=== PATIENT | female | born 1965 | race Caucasian/White ===

== ENCOUNTER 2020-03-29 20:42 | Emergency (ER) | payer MEDICARE, MEDICAID, SELFPAY ==
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
[2020-03-29 20:53] VITALS: BP 125/64; PULSE 90; RESP 18; TEMP 36.9; O2SAT 95
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
[2020-03-29] MEDS: KETOROLAC 30 MG/ML VIAL (*BKC) IM (21:16)
--- NOTE | 2020-03-29 21:38 | PC.NURSE ---
spoke [facility], wants transferred to [place] for surgery in AM
--- NOTE | 2020-03-29 21:39 | PC.NURSE ---
carlos called for a bed
--- NOTE | 2020-03-29 21:56 | PC.NURSE ---
splint applied per MD
[2020-03-29] MEDS: MORPHINE SULFATE 4 MG/ML INJ IM (22:06)
[2020-03-29 22:08] LABS: Basophils Absolute Auto 0.04 K/mm3 (0.00-0.10); Basophils Percent Auto 0.4 % (0.0-1.0); Eosinophils Absolute Auto 0.23 K/mm3 (0.02-0.50); Eosinophils Percent Auto 2.4 % (1.0-6.0); Hematocrit 43.4 % (35.0-49.0); Immature Granulocyte Absolute 0.02 K/mm3 (0.00-0.00); Immature Granulocyte Percent A 0.2 % (0.0-0.0); Lymphocytes Absolute Auto 1.62 K/mm3 (1.10-4.50); Lymphocytes Percent Auto 16.7 % (18.0-42.0); Mean Corpuscular HGB Conc 32.3 g/dL (32.0-36.0); Mean Corpuscular Hemoglobin 29.5 pg (27.0-31.0); Mean Corpuscular Volume 91.4 fL (78.0-102.0); Mean Platelet Volume 9.1 fl (9.2-11.8); Monocytes Absolute Auto 0.62 K/mm3 (0.10-0.90); Monocytes Percent Auto 6.4 % (2.0-11.0); Neutrophils Absolute Auto 7.2 K/mm3 (1.7-7.2); Neutrophils Percent Auto 73.9 % (50.0-70.0); Platelet Count Result 275 K/mm3 (150-420); Red Blood Count 4.75 M/mm3 (4.20-5.40); Red Cell Distribution Width 14.1 % (11.6-14.4); White Blood Count 9.7 K/mm3 (4.8-10.8)
[2020-03-29 22:12] VITALS: BP 124/79; PULSE 78; RESP 16
[2020-03-29 22:23] LABS: Prothrombin Time 10.7 Seconds (9.64-11.0)
[2020-03-29 22:26] LABS: Alanine Aminotransferase 33 U/L (14-59); Albumin Level 3.7 g/dL (3.4-5.0); Alkaline Phosphatase 101 U/L (46-116); Anion Gap 11.2 mmol/L (7-16); Aspartate Amino Transferase 26 U/L (15-37); Bilirubin,Total 0.2 mg/dL (0.00-1.00); Blood Urea Nitrogen 21 mg/dL (7-18); Calcium 9.4 mg/dL (8.5-10.1); Carbon Dioxide 29 mmol/L (21-32); Chloride 103 mmol/L (98-108); Estimated CRCL calculation 42 ml/min; Estimated Glomerular Filt Rate 48; Glucose 97 mg/dL (70-99); Osmolality Calculated 291 mOsm/kg (285-295); Potassium 4.2 mmol/L (3.5-5.1); Sodium 139 mmol/L (136-145); Total Protein 7.8 g/dL (6.4-8.2)
[2020-03-29 22:39] VITALS: BP 130/70; PULSE 78; RESP 18; TEMP 36.6; O2SAT 95
--- NOTE | 2020-03-29 22:52 | PC.NURSE ---
report called to carlos, consent from mother, tevin paged to transfer patient
--- NOTE | 2020-03-29 23:18 | PC.NURSE ---
Report to cr. pt transferred to cot. pt stable . mother (primary caregiver) to accompany pt.
== END 2020-03-29 23:21 | disposition short-term general hospital (02) ==
PROVIDERS: Emergency Provider Family Medicine; PCP Nurse Practitioner Family
DX: S82.401A Unspecified fracture of shaft of right fibula, initial encounter for closed fracture (principal); V19.9XXA Pedal cyclist (driver) (passenger) injured in unspecified traffic accident, initial encounter
CPT/HCPCS: 36415; 73600; 80053; 85025; 85610; 96372; 99283; 99284; 99285; J1885; J2270

== ENCOUNTER 2020-03-30 06:02 | Observation (INO) | payer MEDICARE, MEDICAID, SELFPAY ==
[2020-03-29 23:58] VITALS: BP 130/78; PULSE 82; RESP 20; TEMP 36.9; O2SAT 97; BMI 30.9
--- NOTE | 2020-03-29 23:58 | ADMGEN ---
This patient, Jesi Harris, was admitted to [facility] S[facility] Room 311-01. Patient/family oriented to hospital policies and general routines including ID bracelet, bed and alarms, visiting hours, pain management, procedures, bathroom and other care routines, personal items, smoking policy, room service/diet, and visiting hours. Valuables list has been completed. Information on how to activate the Rapid Response Team has been discussed. Patient/Family are encouraged to report perceived risks to care and to ask questions if they do not understand what they are told or what they should do.
[2020-03-30] VITALS (11 sets, daily range): BP systolic 122–134; BP diastolic 63–81; PULSE 68–92; RESP 16–20; TEMP 36.3–37.4; O2SAT 92–100
--- NOTE | ~2020-03-30 | XR_ITS ---
EXAMINATION: XR surgery orthopedic DATE: 03/30/2020 15:50 INDICATION: ORIF of a displaced fibular fracture at the right ankle TECHNIQUE: 3 fluoroscopic spot images of the right ankle were obtained during procedure performed by Dr. Najera. Radiologist was not present for the imaging or procedure. The amount of fluoroscopy time used during this procedure was 6.1 minutes. COMPARISON: 03/29/2020 FINDINGS: Interval reduction and lateral plate and screw fixation of the oblique distal left fibular fracture. There is also been reduction of the previously subluxed tibiotalar joint and fixation across the dist al tibial syndesmosis with tightrope type syndesmotic fixation with metallic anchor at the medial victoria e of the tibial tunnel. Alignment post fixation is near-anatomic with congruent ankle mortise. No new fractures identified. IMPRESSION: 1. Near-anatomic alignment post internal fixation of a Dorsey type B2 right ankle injury. Reviewed, dictated and finalized at location A. IMPRESSION: 1. Near-anatomic alignment post internal fixation of a Dorsey type B2 right ankl e injury.
--- NOTE | 2020-03-30 01:31 | PC.NURSE ---
Addendum entered by Lisa Lynn RN 03/30/20 04:45: Rapid responses were called on a different unit. Original Note: Dr. Mitchell called at this time for pain medication request with no answer. It is noted that two rapid responses had been called in the past hour and a half.
--- NOTE | 2020-03-30 02:05 | PC.NURSE ---
Addendum entered by Lisa Lynn RN 03/30/20 04:46: Kia martel called on a different unit. Original Note: Tried to reach Dr. Mitchell again at this time [0205] since there has not been a call back regarding pain medication. Again it is noted that about 30 minutes from this call a kia martel was called.
--- NOTE | 2020-03-30 04:00 | PC.NURSE ---
Patient states she is feeling more comfortable at this moment and the pain in her right lower leg/foot has gotten better with repositioning, elevating, and ice packs.
[2020-03-30] MEDS: MORPHINE SULFATE 2 MG/ML INJ IV PUSH ×2 (06:15→10:45)
[2020-03-30] MEDS: LEVOTHYROXINE SODIUM INJ 100 MCG/5 ML VIAL 25 MCG IV PUSH (08:17)
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
--- NOTE | 2020-03-30 12:26 | PC.NURSE ---
Patient to OR per bed around 1200. Consent signed and report was given prior to Td (SBAR on chart). Patient's mother, Yeimy, is at bedside and will remain in the patient's room during surgery.
--- NOTE | 2020-03-30 12:35 | WPDANESEPPF ---
Anes - Initial Pre Proc Eval Procedure: Operation Date: 03/30/20 13:30 Proposed Procedures p OPEN REDUCTION INTERNAL FIXATION RIGHT ANKLE - Brian Najera MD Date/Time: 03/30/20 12:35 Surgeon: Maikel Mesa PA-C Pre Op Diagnosis: Displaced fibular fracture Patient Data Age: 54 Gender: F Height: 5 ft 10 in Weight: 97.7 kg Last Vital Signs Temp 37.4 C 03/30/20 12:05 Pulse 92 03/30/20 12:05 Resp 16 03/30/20 12:05 BP 122/81 03/30/20 12:05 Pulse Ox 96 03/30/20 12:05 Allergies Allergy/AdvReac Type Severity Reaction Status Date / Time No Known Allergies Allergy Verified 03/30/20 00:20 Home Medications Medication Instructions Recorded Confirmed Type levothyroxine 50 mcg tablet 50 mcg PO DAILY #90 tablet 11/08/19 03/30/20 Rx citalopram 30 mg PO QAM 03/30/20 03/30/20 History fexofenadine-pseudoephedrine 1 tablet PO QAM 03/30/20 03/30/20 History [Genesis-D 12 Hour] multivitamin 1 tablet PO QPM 03/30/20 03/30/20 History omega 4-uyz-cpl-fish oil [Fish Oil] 1 cap PO QPM 03/30/20 03/30/20 History Patient hx anesthesia problems: none Family hx anesthesia problems: none PMFSH Past Medical History Medical History Cognitive developmental delay Depression Hypothyroidism Seasonal allergies Surgical History Surgical History H/O: hysterectomy Family History Family History Mother History of blood clots Hypertension Father Colon cancer Social History Social History Social History: The patient lives with her mother, Yeimy iDego. She is listed as Full Code. Her PCP is Dr. 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 Questions were solicited and answers provided to the satisfaction of the patient/family/POA.
[2020-03-30] MEDS: LACTATED RINGERS 1,000 ML 30 ML IV CONT ×2 (12:52→16:12)
[2020-03-30] MEDS: ceFAZolin 2 GM/D5W 50 ML 2 GM/50 ML BAG IVPB ×2 (13:00→21:38)
--- NOTE | 2020-03-30 16:14 | PM.OP ---
Procedure Note - Brief Procedure Note - Brief Date of procedure: 03/30/20 Pre-op diagnosis: Displaced fibular fracture Post-op diagnosis: same Procedure performed: ORIF RIGHT LATERAL MALLEOLUS FRACTURE WITH SYNDESMOTIC FIXATION Anesthesia: GLMA and GETA Surgeon: Brian Najera MD Estimated blood loss (mL): 15 Complications: No immediate complications Condition: stable Disposition: PACU
--- NOTE | 2020-03-30 17:04 | PC.NURSE ---
Returned from OR per bed. Report received from Yassine. Patient's mom is at bedside.
[2020-03-30] MEDS: SODIUM CHLORIDE 0.9% IV 1,000 ML 125 ML IV CONT (17:29)
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
[2020-03-30] MEDS: CITALOPRAM HYDROBROMIDE 10 MG TABLET 30 MG PO (20:08)
[2020-03-30] MEDS: OMEGA 3 POLYUNSAT FATTY ACIDS 1 GM CAP PO (20:10)
[2020-03-30] MEDS: MULTIVITAMINS THERAPEUTIC TAB (*BKC) 1 TABLET PO (20:10)
[2020-03-30] MEDS: ONDANSETRON INJ 4 MG/2 ML VIAL IV PUSH (21:30)
[2020-03-30] MEDS: ASPIRIN 325 MG ENTERIC TABLET PO (21:46)
[2020-03-31] VITALS (7 sets, daily range): BP systolic 104–129; BP diastolic 70–90; PULSE 66–98; RESP 16–18; TEMP 36.4–36.9; O2SAT 96–98
[2020-03-31] MEDS: SODIUM CHLORIDE 0.9% IV 1,000 ML 125 ML IV CONT (02:00)
[2020-03-31] MEDS: ceFAZolin 2 GM/D5W 50 ML 2 GM/50 ML BAG IVPB ×2 (05:57→12:03)
[2020-03-31] MEDS: LEVOTHYROXINE SODIUM 50 MCG TABLET PO (05:58)
[2020-03-31 06:21] LABS: Hematocrit 36.6 % (37.0-47.0); Hemoglobin 11.6 g/dL (12.0-15.0); Mean Corpuscular HGB Conc 31.7 g/dl (32-36); Mean Corpuscular Volume 91.5 fl (80-100); Mean Platelet Volume 9.6 fl (7.4-10.4); Platelet Count Result 252 k/mm3 (150-375); Red Cell Distribution Width 14.1 % (11.5-14.5)
[2020-03-31 06:36] LABS: Blood Urea Nitrogen 19 mg/dL (7-17); Calcium 8.2 mg/dL (8.4-10.2); Carbon Dioxide 26 mmol/L (22-30); Chloride 104 mmol/L (98-107); Estimated CRCL calculation 88 ml/min; Estimated Glomerular Filt Rate > 60; Glucose 174 mg/dL (65-105); Potassium 4.1 mmol/L (3.4-5.0); Sodium 135 mmol/L (137-145)
[2020-03-31] MEDS: DOCUSATE SODIUM 100 MG CAPSULE PO ×2 (08:09→17:09)
[2020-03-31] MEDS: ASPIRIN 325 MG ENTERIC TABLET PO ×2 (08:09→20:16)
[2020-03-31] MEDS: CITALOPRAM HYDROBROMIDE 10 MG TABLET 30 MG PO (08:10)
--- NOTE | 2020-03-31 09:12 | WPDANESPN ---
Anes - Prog Note Post-Op Date/Time: 03/31/20 09:12 Cardiovascular status: normal Respiratory status: normal Airway patency: baseline Mental status: baseline Post-Op hydration status: normal Vital Signs: Last Vital Signs Temp 36.6 C 03/31/20 06:00 Pulse 66 03/31/20 06:00 Resp 18 03/31/20 06:00 BP 104/76 03/31/20 06:00 Pulse Ox 97 03/31/20 06:00 I/O: Intake & Output 03/30/20 03/31/20 03/31/20 23:59 07:59 15:59 Intake Total 1270 1790 600 Output Total 125 1400 Balance 1145 390 600 Laboratory Tests 03/31/20 05:56 03/31/20 05:56 03/31/20 03/31/20 03/31/20 05:56 05:56 05:56 WBC 10.0 RBC 4.00 L Hgb 11.6 L Hct 36.6 L MCV 91.5 MCH 29.0 MCHC 31.7 L RDW 14.1 Plt Count 252 MPV 9.6 Sodium 135 L Potassium 4.1 Chloride 104 Carbon Dioxide 26 BUN 19 H Creatinine 0.80 Estim Creat Clear Calc 88 Estimated GFR > 60 Glucose 174 H Calcium 8.2 L Magnesium 2.0 TSH (Reflex) 1.060 Post-procedural complaints: none Patient Feedback: Patient satisfied with anesthetic care.
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
--- NOTE | 2020-03-31 13:10 | PM.PNORT ---
Progress Note: A&P Assessment and Plan (1) Closed fracture of right distal fibula: Qualifiers: Encounter type: initial encounter Fracture morphology: other fracture Qualified Code(s): S82.831A - Other fracture of upper and lower end of right fibula, initial encounter for closed fracture Code(s): S82.831A - Other fracture of upper and lower end of right fibula, initial encounter for closed fracture Status: Acute Assessment and Plan: POD #1: Right Ankle ORIF Patient/mother are nervous about her being discharge home due to NWB status of the RLE. Her elderly mother does not feel she will be able to help her with ADLs at home. PT/OT evaluation ordered. TRC consult initiated. Continue pain control. Continue ice. Elevate RLE. NWB RLE. Keep splint dry. Dispo: TRC evaluation Subjective Subjective Date/Time Seen: 03/31/20 13:10 POD #1: Open reduction and internal fixation of the lateral malleolus with syndesmosis fixations. No new complaints. Worried about going home. Pain well controlled. Review of Systems Constitutional: Constitutional: Denies chills, Denies fatigue, Denies lethargy, Denies night sweats and Reports weakness (RLE ) Eyes: Eyes: Reports no additional eye complaints ENT: Reports Normal hearing present, Denies dysphagia and Denies nasal congestion Cardiovascular: Cardiovascular: Denies chest pain, Denies leg edema, Denies lightheadedness and Denies palpitations Respiratory: Respiratory: Denies cough, Denies dyspnea and Denies wheezing Gastrointestinal: Gastrointestinal: Denies abdominal pain, Denies nausea and Denies vomiting Genitourinary: Genitourinary: Reports no additional female genitourinary complaints Musculoskeletal: Musculoskeletal: Denies myalgias, Reports arthralgias (Right Ankle ), Reports joint swelling (Right Ankle ) and Reports stiffness (Right Ankle ) Integumentary/Breasts: Comments: Splint c/d/i RIGHT ankle Neurologic: Denies Abnormal speech present, Reports abnormal gait (antalgic RLE (unable to bear weight) ), Denies confusion and Denies numbness Psychiatric: Psychiatric: Denies anxiety and Denies confusion Exam Const: General: comfortable and no acute distress HENMT: Mouth: Yes moist mucous membranes Eyes: General: appearance normal, both eyes and all related structures Neck: Neck: supple and no JVD Resp: Effort & Inspection: normal respiratory effort Other: able to speak in complete sentences Cardio: Rate: regular rate Rhythm: regular rhythm GI: Inspection: non-distended GI Palp: Yes Soft to palpation, No Tenderness to palpation present (GI) and No Guarding due to palpation present (GI) Skin: Other: Unable to assess skin of the RIGHT ankle due to splint. Splint c/d/i. Neuro: General: No gait normal (NWB RLE ) Cognition (Neuro): normal cognition (answering questions appropriately. A&Ox4. ) Speech: normal speech Motor exam (neuro): 5/5 motor strength present throughout (limited RLE ) Sensory Exam: normal sensation Extrem: Right lower extremity: hip/thigh (Thigh/knee soft/nontender ) Details: no tenderness and no swelling, ankle (splint c/d/i. ) and foot Details: normal capillary refill, vascular exam Details: dorsalis pedis pulse present and normal capillary refill; not cool and other (sensation intact RIGHT toes. Good capillary refill. Moves toes. ) Left lower extremity: normal to inspection, full ROM, normal capillary refill, ankle Details: normal to inspection; no tenderness and no swelling and foot Details: normal capillary refill; Negative for abnormal to inspection and no tenderness Psych: Mental Status: mental status grossly normal Other: Poor historian in regards to health history Objective Data Vital Signs Vital Signs: Vital Signs - 24 hr 03/30/20 16:15 03/30/20 16:20 03/30/20 16:35 Temperature 37.2 C Pulse Rate 81 85 90 Respiratory Rate 16 16 16 Blood Pressure 126/77 126/81 123/75 Pulse Oximetry 100 100 98
[2020-03-31] MEDS: MULTIVITAMINS THERAPEUTIC TAB (*BKC) 1 TABLET PO (17:09)
[2020-03-31] MEDS: OMEGA 3 POLYUNSAT FATTY ACIDS 1 GM CAP PO (17:09)
[2020-04-01 06:00] VITALS: BP 113/67; PULSE 75; RESP 16; TEMP 37.2; O2SAT 93
[2020-04-01] MEDS: LEVOTHYROXINE SODIUM 50 MCG TABLET PO (06:05)
[2020-04-01] MEDS: DOCUSATE SODIUM 100 MG CAPSULE PO ×2 (09:26→17:29)
[2020-04-01] MEDS: CITALOPRAM HYDROBROMIDE 10 MG TABLET 30 MG PO (09:27)
[2020-04-01] MEDS: ASPIRIN 325 MG ENTERIC TABLET PO ×2 (09:27→21:13)
--- NOTE | 2020-04-01 12:30 | P.PNOP_ITS ---
Progress Note: A&P Additional Plan POD 2 DOING WELL WITH SLOW PROGRESS. RECOMMEND SNF. MAY TRANSFER WHEN OK WITH MEDICINE. F/U IN 2 WEEKS Subjective Subjective Date/Time Seen: 04/01/20 12:30POD 2 DOING WELL. SLOW PROGRESS WITH PT. NO CALF PAIN Exam Extrem: Other: VSS AFEBRILE DRESSING DRYNV INTACT CALF SOFT Objective Data Vital Signs Vital Signs: Vital Signs - 24 hr 03/31/20 14:51 03/31/20 20:19 03/31/20 22:00 Temperature 36.9 C 36.8 C Pulse Rate 98 81 Respiratory Rate 18 16 Blood Pressure 129/70 126/71 Pulse Oximetry 97 96 96 04/01/20 06:00 Temperature 37.2 C Pulse Rate 75 Respiratory Rate 16 Blood Pressure 113/67 Pulse Oximetry 93 Intake/Output Intake/Output: Intake & Output 03/29/20 03/30/20 03/31/20 04/01/20 23:59 23:59 23:59 23:59 Intake Total 1320 4330 1340 Output Total 125 1700 Balance 1195 2630 1340 Meds/Results Medications: Active Medications Generic Name Dose Route Start Last Admin Trade Name Freq PRN Reason Stop Dose Admin Acetaminophen 650 mg 03/30/20 16:57 Tylenol Tablet PO Q6H PRN Pain Rated 1-3 Hydrocodone Bitart/Acetaminophen 1 tab 03/30/20 16:57 04/01/20 09:37 Manter 7.5-325 Mg PO 1 tab Q3H PRN Administration Pain Rated 4-6 Aspirin 325 mg 03/30/20 21:00 04/01/20 09:27 Aspirin Ec PO 325 mg Q12HR SERGEY Administration Citalopram Hydrobromide 30 mg 03/30/20 18:51 04/01/20 09:27 Celexa PO 30 mg QAM SERGEY Administration Diazepam 5 mg 03/30/20 16:57 Valium Po PO Q8H PRN Muscle Spasm Docusate Sodium 100 mg 03/30/20 17:00 04/01/20 09:26 Colace Capsule PO 100 mg BID SERGEY Administration Fish Oil 1 gm 03/30/20 18:55 03/31/20 17:09 Lovaza PO 1 gm QPM SERGEY Administration Levothyroxine Sodium 50 mcg 03/31/20 06:30 04/01/20 06:05 Synthroid PO 50 mcg DAILY@0630 [facility] Administration Loratadine/Pseudoephedrine Sulfate 1 tab 03/30/20 09:00 03/31/20 08:09 Claritin-D 24 Hour Tablet PO 1 tab QAM SERGEY Administration Magnesium Hydroxide 30 ml 03/30/20 16:57 Milk Of Magnesia PO BID PRN Constipation Morphine Sulfate 3 mg 03/30/20 16:57 Morphine Sulfate Inj IV PUSH Q3H PRN Pain Rated 7-10 Multivitamins Therapeutic 1 tablet 03/30/20 18:53 03/31/20 17:09 Multivitamins Therapeutic(*Bkc PO 1 tablet QPM SERGEY Administration Ondansetron HCl 4 mg 03/30/20 21:13 03/30/20 21:30 Zofran Inj IV PUSH 4 mg Q4H PRN Administration Nausea And Vomiting Oxycodone/Acetaminophen 2 tablet 03/30/20 16:57 Percocet 5-325 Mg PO Q4H PRN Breakthrough Pain Radiology Results: ITS Impressions Intraoperative X-Ray 03/30/20 16:27 IMPRESSION: 1. Near-anatomic alignment post internal fixation of a Dorsey type B2 right ankle injury. Quality VTE Prophylaxis VTE prophylaxis: mechanical ordered (SCDs; further management defered
[2020-04-01 14:00] VITALS: BP 143/69; PULSE 80; RESP 18; TEMP 36.9; O2SAT 100
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
[2020-04-01] MEDS: MULTIVITAMINS THERAPEUTIC TAB (*BKC) 1 TABLET PO (17:29)
[2020-04-01] MEDS: OMEGA 3 POLYUNSAT FATTY ACIDS 1 GM CAP PO (17:29)
[2020-04-01 22:00] VITALS: BP 135/72; PULSE 79; RESP 18; TEMP 37.1; O2SAT 98
[2020-04-02 06:00] VITALS: BP 110/65; PULSE 68; RESP 16; TEMP 36.2; O2SAT 96
[2020-04-02 06:34] LABS: Hematocrit 33.8 % (37.0-47.0); Hemoglobin 10.8 g/dL (12.0-15.0); Mean Corpuscular Hemoglobin 29.6 pg (26-34); Mean Corpuscular Volume 92.6 fl (80-100); Mean Platelet Volume 9.4 fl (7.4-10.4); Platelet Count Result 246 k/mm3 (150-375); Red Blood Count 3.65 M/mm3 (4.2-5.4); Red Cell Distribution Width 14.3 % (11.5-14.5); White Blood Count 7.1 K/mm3 (4.5-10.0)
[2020-04-02 06:51] LABS: Potassium 4.3 mmol/L (3.4-5.0)
[2020-04-02] MEDS: LEVOTHYROXINE SODIUM 50 MCG TABLET PO (06:58)
[2020-04-02 06:59] LABS: Blood Urea Nitrogen 16 mg/dL (7-17); Calcium 8.2 mg/dL (8.4-10.2); Carbon Dioxide 33 mmol/L (22-30); Chloride 104 mmol/L (98-107); Estimated CRCL calculation 88 ml/min; Estimated Glomerular Filt Rate > 60; Glucose 96 mg/dL (65-105); Magnesium 2.2 mg/dL (1.6-2.3); Sodium 137 mmol/L (137-145)
[2020-04-02 08:26] VITALS: O2SAT 96
[2020-04-02] MEDS: CITALOPRAM HYDROBROMIDE 10 MG TABLET 30 MG PO (09:56)
[2020-04-02] MEDS: DOCUSATE SODIUM 100 MG CAPSULE PO (09:56)
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
[2020-04-02] MEDS: ASPIRIN 325 MG ENTERIC TABLET PO (12:24)
--- NOTE | 2020-04-02 13:14 | PM.PNORT ---
Progress Note: A&P Additional Plan POD 3 DOING WELL. OK TO DC TO SNF. F/U IN 2 WEEKS. Subjective Subjective Date/Time Seen: 04/02/20 13:14 POD 3 DOING WELL. SLOW PROGRESS WITH PT. STABLE. NO CALF PAIN Exam Extrem: Other: VSS AFEBRILE DRESSING DRY NV INTACT NEG HOMANS SIGN Objective Data Vital Signs Vital Signs: Vital Signs - 24 hr 04/01/20 14:00 04/01/20 22:00 04/02/20 06:00 Temperature 36.9 C 37.1 C 36.2 C L Pulse Rate 80 79 68 Respiratory Rate 18 18 16 Blood Pressure 143/69 H 135/72 110/65 Pulse Oximetry 100 98 96 04/02/20 08:26 Temperature Pulse Rate Respiratory Rate Blood Pressure Pulse Oximetry 96 Intake/Output Intake/Output: Intake & Output 03/30/20 03/31/20 04/01/20 04/02/20 23:59 23:59 23:59 23:59 Intake Total 1320 4330 4020 600 Output Total 125 2092 920 4063 Balance 1195 2630 3420 -600 Meds/Results Medications: Active Medications Generic Name Dose Route Start Last Admin Trade Name Freq PRN Reason Stop Dose Admin Acetaminophen 650 mg 03/30/20 16:57 Tylenol Tablet PO Q6H PRN Pain Rated 1-3 Hydrocodone Bitart/Acetaminophen 1 tab 03/30/20 16:57 04/02/20 09:58 [place] 7.5-325 Mg PO 1 tab Q3H PRN Administration Pain Rated 4-6 Aspirin 325 mg 03/30/20 21:00 04/02/20 12:24 Aspirin Ec PO 325 mg Q12HR SERGEY Administration Citalopram Hydrobromide 30 mg 03/30/20 18:51 04/02/20 09:56 Celexa PO 30 mg QAM SERGEY Administration Diazepam 5 mg 03/30/20 16:57 Valium Po PO Q8H PRN Muscle Spasm Docusate Sodium 100 mg 03/30/20 17:00 04/02/20 09:56 Colace Capsule PO 100 mg BID SERGEY Administration Fish Oil 1 gm 03/30/20 18:55 04/01/20 17:29 Lovaza PO 1 gm QPM SERGEY Administration Levothyroxine Sodium 50 mcg 03/31/20 06:30 04/02/20 06:58 Synthroid PO 50 mcg DAILY@0630 SERGEY Administration Loratadine/Pseudoephedrine Sulfate 1 tab 03/30/20 09:00 04/02/20 09:57 Claritin-D 24 Hour Tablet PO 1 tab QAM SERGEY Administration Magnesium Hydroxide 30 ml 03/30/20 16:57 Milk Of Magnesia PO BID PRN Constipation Morphine Sulfate 3 mg 03/30/20 16:57 Morphine Sulfate Inj IV PUSH Q3H PRN Pain Rated 7-10 Multivitamins Therapeutic 1 tablet 03/30/20 18:53 04/01/20 17:29 Multivitamins Therapeutic(*Bkc PO 1 tablet QPM SERGEY Administration Ondansetron HCl 4 mg 03/30/20 21:13 03/30/20 21:30 Zofran Inj IV PUSH 4 mg Q4H PRN Administration Nausea And Vomiting Oxycodone/Acetaminophen 2 tablet 03/30/20 16:57 Percocet 5-325 Mg PO Q4H PRN Breakthrough Pain Radiology Results: ITS Impressions Intraoperative X-Ray 03/30/20 16:27 IMPRESSION: 1. Near-anatomic alignment post internal fixation of a Dorsey type B2 right ankle injury. Labs Labs: Laboratory Results - last 24 hr 04/02/20 04/02/20 06:13 06:13 WBC 7.1 RBC 3.65 L Hgb 10.8 L Hct 33.8 L MCV 92.6 MCH 29.6 MCHC 32.0 RDW 14.3 Plt Count 246 MPV 9.4 Sodium 137 Potassium 4.3 Chloride 104 Carbon Dioxide 33 H BUN 16 Creatinine 0.80 Estim Creat Clear Calc 88 Estimated GFR > 60 Glucose 96 Calcium 8.2 L Magnesium 2.2 Quality VTE Prophylaxis VTE prophylaxis: mechanical ordered (SCDs; further management defered to Ortho)
== END 2020-04-02 14:40 | disposition swing bed (61) ==
PROVIDERS: Orthopaedic Surgery; Admitting Provider Internal Medicine; PCP Nurse Practitioner Family; Visit Provider Physician Assistant
PROC: (CPT 27792; principal; 2020-03-30 13:30)
DX: S82.61XA Displaced fracture of lateral malleolus of right fibula, initial encounter for closed fracture (principal); S93.421A Sprain of deltoid ligament of right ankle, initial encounter; V18.4XXA Pedal cycle driver injured in noncollision transport accident in traffic accident, initial encounter; E03.9 Hypothyroidism, unspecified; F32.9 Major depressive disorder, single episode, unspecified; J30.2 Other seasonal allergic rhinitis; F88 Other disorders of psychological development; Z79.899 Other long term (current) drug therapy
CPT/HCPCS: 27792; 27829; 36415; 80048; 83735; 84443; 85027; 96374; 96375; 96376; 97110; 97116; 97161; 97165; 97530; 97535; A9270; C1713; G0378; J0690; J1100; J2270; J2370; J2405; J2704; J7030; J7120

== ENCOUNTER 2020-04-02 15:18 | Inpatient (IN) | payer MEDICARE, SELFPAY ==
[2020-04-02 15:40] VITALS: BP 134/83; PULSE 79; RESP 18; TEMP 36.9; O2SAT 95
[2020-04-02 15:42] VITALS: BMI 30.9
--- NOTE | 2020-04-02 15:48 | ADMGEN ---
This patient, Jesi Harris, was admitted to 2nd Floor Room 202-2. Patient/family oriented to hospital policies and general routines including ID bracelet, bed and alarms, visiting hours, pain management, procedures, bathroom and other care routines, personal items, smoking policy, room service/diet, and visiting hours. Valuables list has been completed. Information on how to activate the Rapid Response Team has been discussed. Patient/Family are encouraged to report perceived risks to care and to ask questions if they do not understand what they are told or what they should do.
--- NOTE | 2020-04-02 16:30 | PC.NURSE ---
Patient resting in bed. Right lower leg elevated on pillow. Denies any needs. Call cowan at side.
[2020-04-02] MEDS: MULTIVITAMINS THERAPEUTIC TAB (*BKC) 1 TABLET PO (18:27)
[2020-04-02] MEDS: OMEGA 3 POLYUNSAT FATTY ACIDS 1 GM CAP PO (18:27)
[2020-04-02 23:34] VITALS: BP 135/73; PULSE 77; RESP 18; TEMP 36.7; O2SAT 94
--- NOTE | 2020-04-03 02:21 | PC.NURSE ---
pt sleeping, respirations even and regular, no evidence of distress noted at this time.
[2020-04-03] MEDS: LEVOTHYROXINE SODIUM 50 MCG TABLET PO (05:29)
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
[2020-04-03 08:00] VITALS: BP 126/70; PULSE 72; RESP 16; TEMP 36.6; O2SAT 96
[2020-04-03] MEDS: CITALOPRAM HYDROBROMIDE 20 MG TABLET 30 MG PO (08:15)
--- NOTE | 2020-04-03 14:08 | PC.NURSE ---
PT and OT - finishing up working with patient at this time.
[2020-04-03 15:14] VITALS: BP 160/80; PULSE 84; RESP 18; TEMP 37.3; O2SAT 95
--- NOTE | 2020-04-03 16:40 | PC.NURSE ---
to therapy via wheel chair to work on steps
--- NOTE | 2020-04-03 17:00 | PC.NURSE ---
returned from therapy, to chair for dinner, remains non weight bearing, using walker,
[2020-04-03] MEDS: MULTIVITAMINS THERAPEUTIC TAB (*BKC) 1 TABLET PO (17:59)
[2020-04-03] MEDS: OMEGA 3 POLYUNSAT FATTY ACIDS 1 GM CAP PO (17:59)
[2020-04-03] MEDS: ACETAMINOPHEN 500 MG TABLET 1000 MG PO (17:59)
--- NOTE | 2020-04-03 18:03 | PC.NURSE ---
tylenol given for pain, right shoulder, ice pack to shoulder and RLE
--- NOTE | 2020-04-03 20:34 | PC.NURSE ---
Up to toilet with gair belt and walker. NWB. to right leg. Does very well
[2020-04-03 20:43] VITALS: BP 129/72; PULSE 85; RESP 16; TEMP 37; O2SAT 96
[2020-04-03] MEDS: SENNA/DOCUSATE SODIUM TABLET 1 TAB PO (23:12)
[2020-04-03 23:30] VITALS: BP 110/66; PULSE 83; RESP 16; TEMP 36.9; O2SAT 93
[2020-04-04] MEDS: LEVOTHYROXINE SODIUM 50 MCG TABLET PO (06:09)
[2020-04-04 07:35] VITALS: BP 144/80; PULSE 84; RESP 18; TEMP 36.6; O2SAT 93
--- NOTE | 2020-04-04 07:35 | PC.NURSE ---
OT in room to work with patient.
[2020-04-04] MEDS: DOCUSATE SODIUM 100 MG CAPSULE PO (08:22)
[2020-04-04] MEDS: ACETAMINOPHEN 500 MG TABLET 1000 MG PO (09:01)
[2020-04-04] MEDS: CITALOPRAM HYDROBROMIDE 20 MG TABLET 30 MG PO (11:57)
--- NOTE | 2020-04-04 14:40 | PC.NURSE ---
PT in room to work with patient.
[2020-04-04 15:53] VITALS: BP 142/82; PULSE 92; RESP 16; TEMP 36.6; O2SAT 96
[2020-04-04] MEDS: MULTIVITAMINS THERAPEUTIC TAB (*BKC) 1 TABLET PO (16:55)
[2020-04-04] MEDS: OMEGA 3 POLYUNSAT FATTY ACIDS 1 GM CAP PO (16:55)
[2020-04-04 20:45] VITALS: BP 120/72; PULSE 76; RESP 20; TEMP 37.4; O2SAT 95
--- NOTE | 2020-04-04 20:45 | PC.NURSE ---
Ambulated to bathroom with no weight bearing to right leg with walker, gait belt and standby assist of one. Returned to bed independantly. Right Leg placed on pillow and fresh ice to ice bag and placed on pillow
[2020-04-04] MEDS: SENNA/DOCUSATE SODIUM TABLET 1 TAB PO (21:24)
[2020-04-05] VITALS: BP 114/64; PULSE 78; RESP 20; TEMP 36.9; O2SAT 94
[2020-04-05] MEDS: LEVOTHYROXINE SODIUM 50 MCG TABLET PO (06:09)
--- NOTE | 2020-04-05 06:12 | PC.NURSE ---
Awake for routine ordered po AM med. Denies need to void.
[2020-04-05 07:34] VITALS: BP 124/80; PULSE 73; RESP 18; TEMP 37; O2SAT 95
--- NOTE | 2020-04-05 08:08 | PC.NURSE ---
SBA from bathroom back to bed, refusing to eat breakfast, just doesn't feel like it
--- NOTE | 2020-04-05 08:42 | PC.NURSE ---
To therapy via wheel chair
[2020-04-05] MEDS: DOCUSATE SODIUM 100 MG CAPSULE PO (09:08)
--- NOTE | 2020-04-05 09:10 | PC.NURSE ---
Returned from therapy
[2020-04-05] MEDS: ACETAMINOPHEN 500 MG TABLET 1000 MG PO (11:34)
--- NOTE | 2020-04-05 11:35 | PC.NURSE ---
given tylenol for headache 01/20, left side, thinks her sinuses are causing pain, leg elevated on pillow, GLORIA good
[2020-04-05] MEDS: CITALOPRAM HYDROBROMIDE 20 MG TABLET 30 MG PO (12:34)
--- NOTE | 2020-04-05 12:48 | PC.NURSE ---
To therapy via wheel chair
--- NOTE | 2020-04-05 13:46 | PC.NURSE ---
Up to bathroom, SBA and use of walker with gait belt, tolerated well,
[2020-04-05 16:00] VITALS: BP 148/73; PULSE 88; RESP 18; TEMP 36.6; O2SAT 98
[2020-04-05] MEDS: OMEGA 3 POLYUNSAT FATTY ACIDS 1 GM CAP PO (17:38)
[2020-04-05] MEDS: MULTIVITAMINS THERAPEUTIC TAB (*BKC) 1 TABLET PO (17:39)
[2020-04-05] MEDS: SENNA/DOCUSATE SODIUM TABLET 1 TAB PO (20:15)
[2020-04-05 23:46] VITALS: BP 119/75; PULSE 76; RESP 18; TEMP 36.9; O2SAT 95
--- NOTE | 2020-04-06 01:27 | PC.NURSE ---
pt sleeping, respirations even and regular, no evidence of distress noted at this time
[2020-04-06] MEDS: LEVOTHYROXINE SODIUM 50 MCG TABLET PO (05:57)
[2020-04-06 07:20] VITALS: BP 128/81; PULSE 87; RESP 18; TEMP 37.4; O2SAT 95
--- NOTE | 2020-04-06 07:55 | PC.NURSE ---
OT in to work with patient, sponge bath and oral care completed
[2020-04-06] MEDS: DOCUSATE SODIUM 100 MG CAPSULE PO (08:16)
[2020-04-06] MEDS: ACETAMINOPHEN 500 MG TABLET 1000 MG PO ×2 (08:53→23:38)
--- NOTE | 2020-04-06 08:54 | PC.NURSE ---
tylenol given for sinus headache
--- NOTE | 2020-04-06 10:34 | PC.NURSE ---
Napping, no evidence of pain at this time, call light in reach
--- NOTE | 2020-04-06 11:50 | PC.NURSE ---
Up to bathroom, using walker and gait belt for safety, tolerates well, observing no weight bearing, had good BM
--- NOTE | 2020-04-06 12:09 | WPDPN ---
Progress Note: A&P Assessment and Plan (1) Closed fracture of right distal fibula: Qualifiers: Encounter type: initial encounter Fracture morphology: other fracture Qualified Code(s): S82.831A - Other fracture of upper and lower end of right fibula, initial encounter for closed fracture Code(s): S82.831A - Other fracture of upper and lower end of right fibula, initial encounter for closed fracture Status: Acute Assessment and Plan: imaging indicated- right lateral malleolus fracture with deltoid ligament rupture. March 30, right ORIF, completed follow-up with Dr. Brian Najera in 2 weeks. keep her splint and cast dry. remain non-weightbearing to that right lower extremity using a 2 wheeledwalker for transfers. pain is controlled with PRN Tylenol, Lidocaine patches, ice packs, and keeping her feet elevated. continue physical therapy/occupational therapy patient will discharge Friday (2) Seasonal allergies: Code(s): J30.2 - Other seasonal allergic rhinitis Status: Acute Assessment and Plan: follow-up with her PCP in 1-2 weeks after discharge, Carley Lindsay at the [facility]. takes home medications , continued Genesis no complaints at this time. no congestion noted during exam, no cough. (3) Hypothyroidism: Code(s): E03.9 - Hypothyroidism, unspecified Status: Acute Assessment and Plan: TSH within normal limits continue Synthroid, . (4) Depression: Code(s): F32.9 - Major depressive disorder, single episode, unspecified Status: Acute Assessment and Plan: continued citalopram Review of Systems Review of Systems: Narrative: CONSTITUTIONAL :No weight loss, fever, chills, weakness or fatigue.: HEENT: Eyes: No diplopia or blurred vision. ENT: No earache, sore throat or runny nose. CARDIOVASCULAR: No pressure, squeezing, strangling, tightness, heaviness or aching about the chest, neck, axilla or epigastrium. RESPIRATORY: No cough, shortness of breath, PND or orthopnea. GASTROINTESTINAL: No nausea, vomiting or diarrhea. GENITOURINARY: No dysuria, frequency or urgency. MUSCULOSKELETAL: No muscle, back pain, joint pain or stiffness. SKIN: No change in skin, hair or nails. NEUROLOGIC: No paresthesias, fasciculations, seizures or weakness. PSYCHIATRIC: No disorder of thought or mood. ENDOCRINE: No heat or cold intolerance, polyuria or polydipsia. HEMATOLOGICAL: No easy bruising or bleeding. Exam Narrative: Exam Narrative: HEENT: PERRLA, Mucous Membranes Moist and [place], Nares Patent, Sclera Clear Neck: JVD, Supple Pulmonary: Clear to Auscultation, Normal Air Movement Cardiovascular: No Murmurs, Gallops, or Rubs, Regular Rhythm, Regular Rate Abdominal: Abdomen Soft, Non-Distended, Normal Bowel Sounds Extremities: right lower extremity cast, capillary refill less than 2 seconds, patient able to move toes Integumentary: No Abnormalities Neurological: Normal Gait, Normal Speech Psychological: Mental Status NL, Mood NL Objective Data Vital Signs Vital Signs: Vital Signs - 24 hr 04/05/20 16:00 04/05/20 23:46 04/06/20 07:20 Temperature 98 F 98.5 F 99.3 F Pulse Rate 88 76 87 Respiratory Rate 18 18 18 Blood Pressure 148/73 H 119/75 128/81 Pulse Oximetry 98 95 95 Intake/Output Intake/Output: Intake & Output 04/03/20 04/04/20 04/05/20 04/06/20 23:59 23:59 23:59 23:59 Intake Total 1395 1710 1280 820 Balance 1395 1710 1280 820 Meds/Results Medications: Active Medications Generic Name Dose Route Start Last Admin Trade Name Freq PRN Reason Stop Dose Admin Acetaminophen 1,000 mg 04/02/20 16:51 04/06/20 08:53 Tylenol Tablet PO 1,000 mg Q6H PRN Administration Mild Pain (1-3) or Fever Hydrocodone Bitart/Acetaminophen 1 tab 04/02/20 16:57 04/04/20 22:35 Manley 5-325 Mg PO 1 tab Q6H PRN Administration Pain Bisacodyl
[2020-04-06] MEDS: CITALOPRAM HYDROBROMIDE 20 MG TABLET 30 MG PO (13:00)
[2020-04-06 15:24] VITALS: BP 140/80; PULSE 80; RESP 18; TEMP 37.1; O2SAT 100
[2020-04-06] MEDS: MULTIVITAMINS THERAPEUTIC TAB (*BKC) 1 TABLET PO (17:30)
[2020-04-06] MEDS: OMEGA 3 POLYUNSAT FATTY ACIDS 1 GM CAP PO (17:30)
[2020-04-06] MEDS: SENNA/DOCUSATE SODIUM TABLET 1 TAB PO (21:06)
[2020-04-06 23:44] VITALS: BP 130/87; PULSE 84; RESP 16; TEMP 36.9; O2SAT 97
[2020-04-07 07:20] VITALS: BP 116/76; PULSE 79; RESP 18; TEMP 36.6; O2SAT 95
--- NOTE | 2020-04-07 07:20 | PC.NURSE ---
SBA up to bathroom to void then back to bed, used walker appropriately, remains non weight bearing to RLE
[2020-04-07] MEDS: DOCUSATE SODIUM 100 MG CAPSULE PO (08:19)
[2020-04-07] MEDS: ACETAMINOPHEN 500 MG TABLET 1000 MG PO (09:22)
--- NOTE | 2020-04-07 09:32 | PC.NURSE ---
Tylenol given for headache
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
--- NOTE | 2020-04-07 11:12 | PC.NURSE ---
Spoke with mom, will call back with parts picker time, to be dc today
--- NOTE | 2020-04-07 11:38 | PC.NURSE ---
Patient mom reports will pick her up at 1330, patient advised of this and agreeable
[2020-04-07] MEDS: CITALOPRAM HYDROBROMIDE 20 MG TABLET 30 MG PO (12:41)
--- NOTE | 2020-04-07 13:30 | PC.NURSE ---
Discharged to home with personal items and discharge instructions, instructions reviewed with patient and with her mom, no questions or concerns
--- NOTE | 2020-04-10 11:59 | PCOTNOTE ---
Patient has been discharged from skilled OT services as she has returned home. Patient has met goals, see last treatment note for patient's level of independence. MS
== END 2020-04-07 13:30 | disposition home health service (06) | DRG 561 ==
PROVIDERS: Admitting Provider Emergency Medicine; PCP Nurse Practitioner Family; Visit Provider Emergency Medicine
DX: S82.61XD Displaced fracture of lateral malleolus of right fibula, subsequent encounter for closed fracture with routine healing (principal); V19.3XXD Pedal cyclist (driver) (passenger) injured in unspecified nontraffic accident, subsequent encounter; S93.421D Sprain of deltoid ligament of right ankle, subsequent encounter; E03.9 Hypothyroidism, unspecified; J30.2 Other seasonal allergic rhinitis; R62.59 Other lack of expected normal physiological development in childhood; F32.9 Major depressive disorder, single episode, unspecified
CPT/HCPCS: 97110; 97161; 97165; 97530; 97535; A9270

== ENCOUNTER 2020-05-23 12:58 | Outpatient (RCR) | payer MEDICARE, MEDICAID, SELFPAY ==
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
--- NOTE | 2020-05-30 14:53 | PCPTNOTE ---
patient called and cancelled appt today. YOVANY
--- NOTE | 2020-06-01 14:42 | PCPTNOTE ---
PT cancelled today. LJ
--- NOTE | 2020-06-08 15:08 | PCPTNOTE ---
patient called and cancelled appt today. YOVANY
== END 2020-07-14 14:23 | disposition home or self-care (01) ==
LOC: CHSPT 12:58
PROVIDERS: Visit Provider Orthopaedic Surgery
DX: Z98.890 Other specified postprocedural states (principal)
CPT/HCPCS: 97110; 97161; 97530

== ENCOUNTER 2021-07-11 15:33 | Outpatient (CLI) | payer MEDICARE, SELFPAY ==
[2021-07-11 16:16] LABS: Alanine Aminotransferase 31 U/L (14-59); Albumin Level 3.7 g/dL (3.4-5.0); Alkaline Phosphatase 116 U/L (46-116); Anion Gap 8 mmol/L (8-16); Aspartate Amino Transferase 19 U/L (15-37); Bilirubin,Total 0.3 mg/dL (0.00-1.00); Blood Urea Nitrogen 14 mg/dL (7-18); Calcium 9.2 mg/dL (8.5-10.1); Carbon Dioxide 30 mmol/L (21-32); Chloride 105 mmol/L (98-108); Cholesterol 219 mg/dL (0-200); Estimated Glomerular Filt Rate 53; Free T4 Free Thyroxine 0.94 ng/dL (0.76-1.46); Glucose 96 mg/dL (70-99); HDL Direct 34 mg/dL (40-60); LDL Cholesterol Calculated 148 mg/dL (<130); Osmolality Calculated 296 mOsm/kg (285-295); Potassium 4.3 mmol/L (3.5-5.1); Sodium 143 mmol/L (136-145); Thyroid Stimulating Hormone 3.02 uIU/mL (0.36-3.74); Total Protein 7.7 g/dL (6.4-8.2); Triglycerides 186 mg/dL (0-150)
== END 2021-07-11 15:34 | disposition home or self-care (01) ==
LOC: CHSLAB 15:36
PROVIDERS: PCP Nurse Practitioner Family; Visit Provider Nurse Practitioner Family
DX: E03.9 Hypothyroidism, unspecified (principal); Z00.00 Encounter for general adult medical examination without abnormal findings
CPT/HCPCS: 36415; 80053; 80061; 84439; 84443

== ENCOUNTER 2023-02-10 09:58 | Outpatient (CLI) | payer OTHER, SELFPAY ==
[2023-02-10 11:08] LABS: Free T4 Free Thyroxine 0.92 ng/dL (0.76-1.46); Thyroid Stimulating Hormone 4.77 uIU/mL (0.36-3.74)
== END 2023-02-10 09:59 | disposition home or self-care (01) ==
PROVIDERS: PCP Nurse Practitioner Family; Visit Provider Nurse Practitioner Family
DX: E03.9 Hypothyroidism, unspecified (principal)
CPT/HCPCS: 36415; 84439; 84443

== ENCOUNTER 2023-04-21 14:48 | Outpatient (CLI) | payer OTHER, SELFPAY | END 2023-04-21 14:49 | disposition home or self-care (01) | PROVIDERS: PCP Nurse Practitioner Family; Visit Provider Nurse Practitioner Family | DX: E03.9 Hypothyroidism, unspecified (principal) | CPT/HCPCS: 36415; 84443 ==

== ENCOUNTER 2023-10-29 10:37 | Outpatient (CLI) | payer OTHER, SELFPAY ==
[2023-10-29 12:21] LABS: Thyroid Stimulating Hormone 2.53 uIU/mL (0.36-3.74)
== END 2023-10-29 10:38 | disposition home or self-care (01) ==
PROVIDERS: PCP Nurse Practitioner Family; Visit Provider Nurse Practitioner Family
DX: E03.9 Hypothyroidism, unspecified (principal)
CPT/HCPCS: 36415; 84443

== ENCOUNTER 2024-01-05 10:51 | Outpatient (CLI) | payer OTHER, SELFPAY | END 2024-01-05 10:52 | disposition home or self-care (01) | LOC: CHSLAB 10:52 | PROVIDERS: PCP Nurse Practitioner Family; Visit Provider Nurse Practitioner Family | DX: E03.9 Hypothyroidism, unspecified (principal) | CPT/HCPCS: 36415; 84443 ==

== ENCOUNTER 2024-01-12 14:39 | Outpatient (CLI) | payer OTHER, SELFPAY ==
[2024-01-12 14:56] LABS: Basophils Absolute Auto 0.06 K/mm3 (0.00-0.10); Basophils Percent Auto 0.4 % (0.0-1.0); Eosinophils Absolute Auto 0.07 K/mm3 (0.02-0.50); Eosinophils Percent Auto 0.5 % (1.0-6.0); Hematocrit 44.4 % (35.0-49.0); Hemoglobin 14.3 g/dL (12.0-15.0); Immature Granulocyte Absolute 0.05 K/mm3 (0.00-0.00); Immature Granulocyte Percent A 0.4 % (0.0-0.0); Lymphocytes Absolute Auto 1.47 K/mm3 (1.10-4.50); Lymphocytes Percent Auto 10.5 % (18.0-42.0); Mean Corpuscular HGB Conc 32.2 g/dL (32-36); Mean Corpuscular Hemoglobin 28.9 pg (27.0-31.0); Mean Corpuscular Volume 89.9 fL (78.0-102.0); Mean Platelet Volume 8.7 fl (9.2-11.8); Monocytes Absolute Auto 0.94 K/mm3 (0.10-0.90); Monocytes Percent Auto 6.7 % (2.0-11.0); Neutrophils Absolute Auto 11.44 K/mm3 (1.70-7.20); Neutrophils Percent Auto 81.5 % (50.0-70.0); Platelet Count Result 335 K/mm3 (150-420); Red Blood Count 4.94 M/mm3 (4.20-5.40); Red Cell Distribution Width 13.7 % (11.6-14.4)
[2024-01-12 15:27] LABS: Alanine Aminotransferase 33 U/L (14-59); Alkaline Phosphatase 136 U/L (46-116); Amylase 33 U/L (25-115); Anion Gap 13 mmol/L (4-12); Aspartate Amino Transferase 24 U/L (15-37); Bilirubin,Total 0.6 mg/dL (0.00-1.00); Blood Urea Nitrogen 18 mg/dL (7-18); Calcium 9.4 mg/dL (8.5-10.1); Carbon Dioxide 25 mmol/L (21-32); Chloride 103 mmol/L (98-108); Estimated Glomerular Filt Rate 55; Glucose 99 mg/dL (70-99); Lipase 35 U/L (16-77); Osmolality Calculated 293 mOsm/kg (285-295); Potassium 4.4 mmol/L (3.5-5.1); Sodium 141 mmol/L (136-145); Total Protein 7.7 g/dL (6.4-8.2)
== END 2024-01-12 14:40 | disposition home or self-care (01) ==
LOC: CHSLAB 14:45
PROVIDERS: PCP Nurse Practitioner Family; Visit Provider Nurse Practitioner Family
DX: R11.2 Nausea with vomiting, unspecified (principal)
CPT/HCPCS: 36415; 80053; 82150; 83690; 85025

== ENCOUNTER 2024-07-01 12:13 | Outpatient (CLI) | payer OTHER, SELFPAY ==
[2024-07-01 13:50] LABS: Thyroid Stimulating Hormone 2.62 uIU/mL (0.36-3.74)
== END 2024-07-01 12:14 | disposition home or self-care (01) ==
LOC: CHSLAB 12:15
PROVIDERS: PCP Nurse Practitioner Family; Visit Provider Nurse Practitioner Family
DX: E03.9 Hypothyroidism, unspecified (principal)
CPT/HCPCS: 36415; 84443

== ENCOUNTER 2024-12-30 11:12 | Outpatient (CLI) | payer OTHER, SELFPAY ==
[2024-12-30 12:04] LABS: Thyroid Stimulating Hormone 1.35 uIU/mL (0.36-3.74)
== END 2024-12-30 11:13 | disposition home or self-care (01) ==
LOC: CHSLAB 11:13
PROVIDERS: PCP Nurse Practitioner Family; Visit Provider Nurse Practitioner Family
DX: E03.9 Hypothyroidism, unspecified (principal)
CPT/HCPCS: 36415; 84443

== ENCOUNTER 2025-06-22 12:58 | Outpatient (CLI) | payer OTHER, SELFPAY ==
[2025-06-22 14:29] LABS: Thyroid Stimulating Hormone 2.300 uIU/mL (0.465-4.680)
== END 2025-06-22 12:59 | disposition home or self-care (01) ==
LOC: CHSLAB 12:58
PROVIDERS: PCP Nurse Practitioner Family; Visit Provider Nurse Practitioner Family
DX: E03.9 Hypothyroidism, unspecified (principal)
CPT/HCPCS: 36415; 84443